=== PATIENT | male | born 1960 ===

== ENCOUNTER 2025-02-08 06:30 | Day surgery (SDC) | payer OTHER ==
[2025-02-04 11:38] LABS: BASO % 0.8 % (0.1-1.2); EOS % 2.1 % (0.7-7.0); HEMATOCRIT 39.6 % (40.1-51.0); HEMOGLOBIN 13.3 g/dL (13.7-17.5); LYMPH % 41.4 % (19.3-53.1); MEAN CORPUSCULAR HEMOGLOBIN 31.4 pg (25.6-32.2); MONO # 0.47 (0.24-0.82); MONO % 9.7 % (4.7-12.5); NEUT # 2.18 (1.56-6.13); NEUT % 45.2 % (34.0-71.1); PLATELET COUNT 228 K/uL (163-369); RED BLOOD COUNT 4.24 M/uL (4.63-6.08); RED CELL DISTRIBUTION WIDTH 13.4 % (11.6-14.4)
[2025-02-04 11:43] VITALS: BP 153/84
[2025-02-04 12:01] LABS: INR 1.05; PARTIAL THROMBOPLASTIN TIME 27.5 SECONDS (22.0-34.0); PROTHROMBIN TIME 11.4 SECONDS (9.0-11.5)
[2025-02-04 12:06] LABS: PH,URINE 5.5 (5.0-8.0); URINE APPEARANCE Clear; URINE BILIRRUBIN Negative (NEGATIVE); URINE BLOOD Negative; URINE COLOR Yellow; URINE GLUCOSE Negative (NEGATIVE); URINE KETONE Negative (NEGATIVE); URINE LEUKOCYTE Negative; URINE NITRATE Negative; URINE PROTEIN Negative (NEGATIVE); URINE UROBILINOGEN 0.2 E.U./dl
[2025-02-04 12:22] LABS: URINE BACTERIA 1.2 uL (0.0-1933); URINE EPITHELIAL CELLS 0.7 uL (0.0-38.8); URINE WBC 1.4 uL (0.0-23.2)
[2025-02-04 12:30] LABS: ALBUMIN 4.2 gm/dL (3.4-5.0); BILIRUBIN TOTAL 0.7 mg/dL (0.3-1.2); CALCIUM 9.3 mg/dL (8.5-10.1); CREATININE SERUM 0.83 mg/dL (0.70-1.30); GFR 92.98; POTASSIUM 4.64 mEq/L (3.5-5.1); TOTAL PROTEIN 7.2 gm/dL (6.4-8.2)
[~2025-02-08] VITALS: Ht 167.6 cm; Wt 63.5 kg
[~2025-02-08 06:30] MED LIST: ASA81 MG PO; LIPITOR20 MG; SYNTHROID50 MCG PO
[2025-02-08] MEDS ORDERED: CEFAZOLIN SODIUM 1,000 MG VIAL ONE (09:55)
[2025-02-08] MEDS ORDERED: PANTOPRAZOLE SODIUM 40 MG/VIAL VIAL ONE (10:01)
[2025-02-08] MEDS ORDERED: EPINEPHRINE HCL/PF 1 MG/ML AMPUL ONE (12:52)
[2025-02-08] MEDS ORDERED: POVIDONE-IODINE 118 ML BOTT TOP ONE (12:53)
[2025-02-08] MEDS ORDERED: CIPROFLOXACIN HCL 0.175 MG/DR DROPS OP ONE (14:30)
== END 2025-02-08 17:20 | disposition home or self-care (01) ==
LOC: CIR.AMB 06:30
PROVIDERS: ATTEND Otolaryngology
DX: H72.92 Unspecified perforation of tympanic membrane, left ear (principal)